=== PATIENT | female | born 1985 | race Caucasian/White ===

== ENCOUNTER 2023-06-06 17:09 | Emergency (ER) | payer OTHER, SELFPAY ==
[2023-06-06 17:26] VITALS: BP 118/83; PULSE 74; RESP 18; TEMP 36.6; O2SAT 99; BMI 28.3
== END 2023-06-06 18:15 | disposition left against medical advice (07) ==
LOC: ED 18:31
PROVIDERS: Emergency Provider Family Medicine
DX: Z53.21 Procedure and treatment not carried out due to patient leaving prior to being seen by health care provider (principal)